=== PATIENT | male | born 1985 | race Two or more races ===

== ENCOUNTER 2024-07-18 08:04 | Day surgery (SDC) | payer OTHER ==
[2024-07-18] MEDS ORDERED: DIPHENHYDRAMINE HCL 50 MG/ML VIAL 1ML IV ONE (11:30)
[2024-07-18] MEDS ORDERED: fentaNYL CITRATE 50 MCG/ML AMPUL IV PUSH ONE (11:30)
[2024-07-18] MEDS ORDERED: MIDAZOLAM HCL 2 MG/2 ML VIAL IV ONE (11:30)
== END 2024-07-18 12:50 | disposition home or self-care (01) ==
LOC: CIR.AMB 08:04
PROVIDERS: ATTEND Surgery
DX: K63.5 Polyp of colon (principal); Z88.6 Allergy status to analgesic agent